=== PATIENT | male | born 1995 | race Caucasian/White ===

== ENCOUNTER 2019-04-07 23:32 | Emergency (ER) | payer OTHER ==
[2019-04-07 23:40] VITALS: BP 123/87; PULSE 69; TEMP 98; BMI 26.6
--- NOTE | 2019-04-08 00:09 | PDOC ---
History of Present Illness - General History Source: Patient Exam Limitations: No Limitations - History of Present Illness Initial Comments: 04/08/19 00:00 Patient is a 23-year-old male with no past medical history complaining of left middle finger injury since yesterday. He was moving a transmission to a car when his finger got pinched between the transmission and a hard plastic carton. Patient states pain is like a continuous, throbbing 11/04. He has taken Tylenol for his symptoms last dose was 2129 today. PMD: Dr. Davies PMHX: as above PSOCHX: neg etoh, drug, cig ALL: NKDA GENERAL/CONSTITUTIONAL: [No fever or chills. No weakness. No weight change.] HEAD, EYES, EARS, NOSE AND THROAT: [No change in vision. No ear pain or discharge. No sore throat.] CARDIOVASCULAR: [No chest pain or shortness of breath.] RESPIRATORY: [No cough, wheezing, or hemoptysis.] GASTROINTESTINAL: [No nausea, vomiting, diarrhea or constipation. No rectal bleeding.] GENITOURINARY: [No dysuria, frequency, or change in urination.] MUSCULOSKELETAL: [(+) joint or muscle swelling or pain. No neck or back pain.] SKIN AND BREASTS: [No rash or easy bruising.] NEUROLOGIC: [No headache, vertigo, loss of consciousness, or loss of sensation.] PSYCHIATRIC: [No depression or anxiety.] ALLERGIC/IMMUNOLOGIC: [No hives or skin allergy. No latex allergy.] GENERAL: [The patient is awake, alert, and fully oriented, in no acute distress. ] HEAD: [Normal with no signs of trauma.] LUNGS: [Breath sounds equal, clear to auscultation bilaterally. No wheezes, and no crackles.] HEART: [Regular rate and rhythm, normal S1 and S2 .] EXTREMITIES: [Left hand normal range of motion, mild swelling to the distal tip of third phalanx. Subungual discoloration. Mild tenderness, no nail avulsion.] NEUROLOGICAL: [Cranial nerves II through XII grossly intact. Sensory to the fingertips are intact, normal speech, normal gait.] PSYCH: [Normal mood, normal affect.] SKIN: [Warm, Dry, normal turgor, (+) bruising to the nailbed left 3rd middle phalanx distally] <Fitch-Shayla,Hilsa - Last Filed: 04/08/19 00:32> <Washington Walker - Last Filed: 04/08/19 04:16> - General Chief Complaint: Injury Stated Complaint: MIDDLE FINGER/L/HAND/INJURY Past History - Past Medical History COPD: No - Immunization History Immunization Up to Date: Yes - Psycho Social/Smoking Cessation Hx Smoking History: Never smoked Hx Alcohol Use: No Drug/Substance Use Hx: No <Jamie Machado - Last Filed: 04/08/19 00:32> *Physical Exam - Vital Signs Last Vital Signs Temp Pulse Resp BP Pulse Ox 98.0 F 69 18 123/87 97 04/07/19 23:37 04/07/19 23:37 04/07/19 23:37 04/07/19 23:37 04/07/19 23:37 <Jamie Machado - Last Filed: 04/08/19 00:32> - Vital Signs Last Vital Signs Temp Pulse Resp BP Pulse Ox 98.0 F 69 18 123/87 97 04/07/19 23:37 04/07/19 23:37 04/07/19 23:37 04/07/19 23:37 04/07/19 23:37 <Washington Walker - Last Filed: 04/08/19 04:16> ED Treatment Course - RADIOLOGY Radiology Studies Ordered: Category Date Time Status HAND- LEFT [RAD] Stat Radiology 04/07/19 23:54 Ordered <Jamie Machado - Last Filed: 04/08/19 00:32> - Medications Given in the ED: ED Medications Discontinued Medications Generic Name Dose Route Start Last Admin Trade Name Freq PRN Reason Stop Dose Admin Ibuprofen 600 mg 04/08/19 00:10 04/08/19 00:36 Motrin - PO 04/08/19 00:11 600 mg ONCE ONE Administration <Washington Walker - Last Filed: 04/08/19 04:16> Medical Decision Making - Medical Decision Making 04/08/19 00:00 Patient is a 23-year-old male with no past medical history complaining of left middle finger injury since yesterday. He was moving a transmission to a car when his finger got pinched between the transmission and a hard plastic carton. Patient states pain is like a continuous, throbbing 11/04. He has taken Tylenol for his symptoms last dose was 2129 today. Symptoms consistent with subungual hematoma rule out fracture tuft. There is no avulsion of the nail and subungual hematoma is too small to require trephination at this time. X-ray motrin reassess 04/08/19 00:16 X-ray reviewed there are no apparent injuries to the tuft. I discussed the physical exam findings, ancillary test results and final diagnoses with the patient. I answered all of the patient's questions. The patient was satisfied with the care received and felt comfortable with the discharge plan and treatment plan. The Patient agrees to follow up with the primary care physician within 24-72 hours. <Jamie Machado - Last Filed: 04/08/19 00:32> - Medical Decision Making 04/08/19 04:15 I reviewed the case of the mid-level practitioner and was available for consultation while in the emergency department <Washington Walker - Last Filed: 04/08/19 04:16> Discharge - Discharge Information Problems reviewed: Yes <Jamie Machado - Last Filed: 04/08/19 00:32> <Washington Walker - Last Filed: 04/08/19 04:16> - Discharge Information Clinical Impression/Diagnosis: Subungual hematoma of finger Qualifiers: Encounter type: initial encounter Qualified Code(s): S60.10XA - Contusion of unspecified finger with damage to nail, initial encounter Condition: Stable Disposition: HOME - Patient Discharge Instructions Patient Printed Discharge Instructions: DI for Subungual Hematoma Additional Instructions: Your Discharge Instructions: You must call primary care physician within 24 hours to arrange follow-up. Return to the Emergency Department with any new, persistent or worsening symptoms, for fever, chills, SOB, dizziness or any other concerning changes that may occur. Continue Tylenol and Motrin for pain. Continue ice to the area and 20-minute intervals for the next 24 hours.
[2019-04-08] MEDS ORDERED: IBUPROFEN 600 MG TABLET (FP) PO ONE ×2 (00:10→00:32)
== END 2019-04-08 00:40 | disposition home or self-care (01) ==
LOC: JER 23:32
DX: S60.10XA Contusion of unspecified finger with damage to nail, initial encounter (principal); W20.8XXA Other cause of strike by thrown, projected or falling object, initial encounter; Y93.89 Activity, other specified; Y92.59 Other trade areas as the place of occurrence of the external cause
CPT/HCPCS: 73130-TC-LT-FY; 99281-25

== ENCOUNTER 2019-04-09 21:49 | Emergency (ER) | payer OTHER ==
[2019-04-09 22:12] VITALS: TEMP 97.8; BMI 26.6
--- NOTE | 2019-04-10 | PDOC ---
History of Present Illness - General Chief Complaint: Wound Stated Complaint: L MIDDLE FINGER BRUISED Time Seen by Provider: 04/09/19 23:10 - History of Present Illness Initial Comments: 04/10/19 00:00 23 Patient with Left 3rd finger subungal hematoma, seen in our ED on 04/08 for same problem, rule out fracture, no trephination done then has bleed was too small. Hematoma now much larger, hasn't stopped hurting and getting bigger. Past History - Past Medical History Allergies/Adverse Reactions: Allergies Allergy/AdvReac Type Severity Reaction Status Date / Time No Known Allergies Allergy Verified 04/09/19 22:12 COPD: No - Immunization History Immunization Up to Date: Yes - Psycho Social/Smoking Cessation Hx Smoking History: Never smoked Have you smoked in the past 12 months: No Information on smoking cessation initiated: No Hx Alcohol Use: No Drug/Substance Use Hx: No Review of Systems - Review of Systems Able to Perform ROS?: Yes Is the patient limited Albanian proficient: No Integumentary: Yes: See HPI All Other Systems: Reviewed and Negative *Physical Exam - Vital Signs Last Vital Signs Temp Pulse Resp BP Pulse Ox 97.8 F 101 H 17 131/98 99 04/09/19 22:09 04/09/19 22:09 04/09/19 22:09 04/09/19 22:09 04/09/19 22:09 - Physical Exam General Appearance: Yes: Nourished, Appropriately Dressed. No: Apparent Distress HEENT: positive: EOMI, JO-ANN, Normal ENT Inspection Gastrointestinal/Abdominal: positive: Normal Bowel Sounds, Flat, Soft. negative : Tender Extremity: positive: Other (Large hamtoma with subungal swelling of the L 3rd finger. ) Integumentary: positive: Normal Color, Dry, Warm Neurologic: positive: Fully Oriented, Alert, Normal Mood/Affect, Normal Response , Motor Strength 5/5 Medical Decision Making - Medical Decision Making 04/10/19 00:03 Hematoma evacuated with cautery pen. Finger has full sensation, swelling greatly reduced patient ok to go home. Discharge - Discharge Information Problems reviewed: Yes Clinical Impression/Diagnosis: Subungual hematoma of finger Condition: Improved Disposition: HOME - Admission No - Follow up/Referral Referrals: Naeem Davies MD [Primary Care Provider] - - Patient Discharge Instructions Patient Printed Discharge Instructions: DI for Subungual Hematoma Additional Instructions: Come back to the emergency department for any new, worsening or concerning symptoms. - Post Discharge Activity
--- NOTE | 2019-04-10 00:07 | PDOC ---
Documentation entered by Bryan Benavides SCRIBE, acting as scribe for Malorie Nixon MD. Malorie Nixon MD: This documentation has been prepared by the reinaldoeKennedy Daniel, SCRIBE, under my direction and personally reviewed by me in its entirety. I confirm that the documentation accurately reflects all work, treatment, procedures, and medical decision making performed by me. Attending Attestation - Resident Resident Name: Denzel Rivera - ED Attending Attestation I have performed the following: I have examined & evaluated the patient, The case was reviewed & discussed with the resident, I agree w/resident's findings & plan, Exceptions are as noted - HPI HPI: 04/09/19 23:44 The patient is a 23 year old male with no past medical history here today for evaluation of left middle finger pain. The patient was seen yesterday after injuring his left middle finger doing some automotive work. Patient reports that since then the pain and redness in his left middle finger has increased. Patient denies headache, lightheadedness. Denies fever, chills. Denies chest pain, shortness of breath. Denies nausea, vomiting, diarrhea, abdominal pain. Allergies: NKA PCP: Naeem Davies - Physicial Exam PE: 04/10/19 00:[address] Rivera's physical exam - Medical Decision Making 04/10/19 00:07 imp subungal hematoma Cautery used to drain hematoma dc home 04/10/19 00:08
[2019-04-10 00:14] VITALS: BP 126/90; PULSE 85
== END 2019-04-10 00:10 | disposition home or self-care (01) ==
LOC: JER 21:49
DX: W45.0XXA Nail entering through skin, initial encounter (principal); Y93.89 Activity, other specified; Y92.410 Unspecified street and highway as the place of occurrence of the external cause; Y99.0 Civilian activity done for income or pay
CPT/HCPCS: 99282-25